=== PATIENT | female | born 1970 | race Caucasian/White ===

== ENCOUNTER 2017-12-06 05:51 | Emergency (ER) | payer OTHER | END 2017-12-06 07:05 | disposition home or self-care (01) | LOC: FTE 05:51 | DX: R05 Cough (principal); F17.210 Nicotine dependence, cigarettes, uncomplicated | CPT/HCPCS: 99284; Z7502 ==

== ENCOUNTER 2018-05-25 10:18 | Emergency (ER) | payer OTHER ==
[2018-05-25 11:55] LABS: ADD MAN DIFF? NO
[2018-05-25 11:59] LABS: BASOPHIL # 0.1 10^3/ul (0.0-0.1); BASOPHILS % 0.3 % (0.0-2.0); EOSINOPHILS % 0.2 % (0.0-7.0); HEMATOCRIT 41.7 % (37.0-47.0); HEMOGLOBIN 14.1 g/dl (12.0-16.0); LYMPHOCYTES # 1.4 10^3/ul (0.8-2.9); LYMPHOCYTES % 8.1 % (15.0-51.0); MEAN CORPUSCULAR HEMOGLOBIN 28.1 pg (29.0-33.0); MEAN CORPUSCULAR HGB CONC 33.8 g/dl (32.0-37.0); MEAN CORPUSCULAR VOLUME 83.2 fl (82.0-101.0); MEAN PLATELET VOLUME 9.8 fl (7.4-10.4); MONOCYTE # 1.2 10^3/ul (0.3-0.9); MONOCYTES % 6.7 % (0.0-11.0); NEUTROPHIL # 14.5 10^3/ul (1.6-7.5); NEUTROPHILS % 84.2 % (39.0-77.0); PLATELET COUNT 279 10^3/UL (140-415); RED BLOOD COUNT 5.01 10^6/ul (4.20-5.40); RED CELL DISTRIBUTION WIDTH 12.7 % (11.5-14.5)
[2018-05-25 11:59] LABS: WHITE BLOOD COUNT 17.3 10^3/ul (4.8-10.8)
[2018-05-25] MEDS: PIPER-TAZO 3.375 GM IV (PMX) 100 ML IVPB (12:07)
[2018-05-25] MEDS: HYDROmorphONE 0.5 MG/0.5 ML SYG IV (12:08)
[2018-05-25] MEDS: SODIUM CHLORIDE 0.9% 1L BAG IV* (12:08)
[2018-05-25 12:13] LABS: LACTIC ACID 1.2 mmol/L (0.5-2.0)
[2018-05-25 12:14] LABS: ALANINE AMINOTRANSFERASE 30 IU/L (13-69); ALBUMIN 4.5 g/dl (3.3-4.9); ALBUMIN/GLOBULIN RATIO 0.95; ALKALINE PHOSPHATASE 102 IU/L (42-121); ANION GAP 18 (8-16); ASPARTATE AMINO TRANSFERASE 27 IU/L (15-46); BILIRUBIN,INDIRECT 0.6 mg/dl (0-1.1); BILIRUBIN,TOTAL 0.6 mg/dl (0.2-1.3); BLOOD UREA NITROGEN 10 mg/dl (7-20); CALCIUM 9.8 mg/dl (8.4-10.2); CARBON DIOXIDE 27 mmol/L (21-31); CHLORIDE 100 mmol/L (97-110); CREATININE 0.58 mg/dl (0.44-1.00); GLUCOSE 114 mg/dl (70-220); POTASSIUM 4.2 mmol/L (3.5-5.1); SODIUM 141 mmol/L (135-144); TOTAL PROTEIN 9.2 g/dl (6.1-8.1)
[2018-05-25] MEDS: KETOROLAC 30 MG INJ IV (12:14)
[2018-05-25 12:28] LABS: TROPONIN-I < 0.012 ng/ml (0.000-0.120)
[2018-05-25] MEDS: VANCOMYCIN 1 GM (PMX) 250 ML IVPB (13:11)
[2018-05-25] MEDS: LIDOCAINE 1% (MDV) 10 ML INJ INFIL (13:11)
== END 2018-05-25 17:35 | disposition home or self-care (01) ==
LOC: E/R 10:18
DX: S90.32XA Contusion of left foot, initial encounter (principal); L02.414 Cutaneous abscess of left upper limb; S49.92XA Unspecified injury of left shoulder and upper arm, initial encounter; S29.9XXA Unspecified injury of thorax, initial encounter; J45.909 Unspecified asthma, uncomplicated; F17.210 Nicotine dependence, cigarettes, uncomplicated; R07.9 Chest pain, unspecified; V00.141A Fall from scooter (nonmotorized), initial encounter; Y92.9 Unspecified place or not applicable
CPT/HCPCS: 29515; 36415; 71045; 73610; 73630-LT; 80053; 81025; 83605; 84484; 84703; 85025; 87040; 93005; 96365; 96366; 96367; 96375; 99285-25

== ENCOUNTER 2018-05-27 17:18 | Emergency (ER) | payer OTHER ==
[2018-05-27] MEDS: CEFAZOLIN 1 GM INJ IM (19:22)
[2018-05-27] MEDS: LIDOCAINE 1% (MDV) 10 ML INJ INFIL (19:22)
[2018-05-27] MEDS: MUPIROCIN 2% 22 GM OINT TOP (19:32)
== END 2018-05-27 20:12 | disposition home or self-care (01) ==
LOC: FTE 17:18
DX: L53.9 Erythematous condition, unspecified (principal); J45.909 Unspecified asthma, uncomplicated; F17.210 Nicotine dependence, cigarettes, uncomplicated
CPT/HCPCS: 96372; 99284-25

== ENCOUNTER 2018-05-31 15:17 | Emergency (ER) | payer SELFPAY, OTHER | END 2018-05-31 17:33 | disposition left against medical advice (07) | LOC: E/R 15:17 | DX: Z53.21 Procedure and treatment not carried out due to patient leaving prior to being seen by health care provider (principal) ==

== ENCOUNTER 2019-01-31 22:06 | Emergency (ER) | payer OTHER ==
[2019-02-01] MEDS ORDERED: LIDOCAINE 1% (MDV) 10 ML INJ INJ (00:53)
[2019-02-01] MEDS: IBUPROFEN 600 MG TAB PO (01:03)
[2019-02-01] MEDS: LIDOCAINE 1% (MPF) 5 ML VIAL INJ (01:43)
== END 2019-02-01 02:54 | disposition home or self-care (01) ==
LOC: E/R 02-01 02:54
DX: L03.011 Cellulitis of right finger (principal); L73.9 Follicular disorder, unspecified; I10 Essential (primary) hypertension; A60.09 Herpesviral infection of other urogenital tract; J45.909 Unspecified asthma, uncomplicated; F17.210 Nicotine dependence, cigarettes, uncomplicated
CPT/HCPCS: 26011; 99283